=== PATIENT | male | born 1945 | race Caucasian/White ===

== ENCOUNTER 2023-08-02 09:24 | Inpatient (IN) | payer MEDICARE ==
[~2023-08-02] VITALS: Ht 167.6 cm; Wt 73.2 kg
[2023-08-02] MEDS ORDERED: ELIQUIS (09:43)
[2023-08-02] MEDS ORDERED: IV NORMAL SALINE 1000 ML BAG IV ONE (09:45)
[2023-08-02 09:55] LABS: BASOPHILS # (AUTO) 0.2 K/UL (0.0-0.2); BASOPHILS % (AUTO) 0.9 % (0.0-2.0); HEMOGLOBIN 14.3 g/dL (12.5-16.3); LYMPHOCYTES # (AUTO) 0.5 K/uL (0.8-4.8); LYMPHOCYTES % (AUTO) 2.5 % (20.5-51.5); MEAN CORPUSCULAR HEMOGLOBIN 31.3 uug (23.8-33.4); MEAN CORPUSCULAR HGB CONC 33 g/dL (32.5-36.3); NEUTROPHILS # (AUTO) 18.2 K/uL (1.8-8.9); NEUTROPHILS % (AUTO) 91.6 % (38.5-71.5); PLATELET COUNT (AUTO) 230 K/uL (152-348); RED BLOOD CELL COUNT(AUTO) 4.57 MIL/uL (4.06-5.63); RED CELL DISTRIBUTION WIDTH 15.2 % (12.1-16.2); WHITE BLOOD COUNT (AUTO) 19.9 K/uL (3.6-10.2)
[2023-08-02 10:07] LABS: DIFFERENTIAL COMMENT 1
[2023-08-02 10:08] LABS: CALCIUM 9.1 mg/dL (8.5-10.1); CARBON DIOXIDE 24 mmol/L (21-32); CHLORIDE 98 mmol/L (98-107); CREATININE 2.1 mg/dL (0.6-1.3); GLUCOSE 105 mg/dL (74-106); POTASSIUM 3.9 mmol/L (3.5-5.1); SODIUM SERUM 135 mmol/L (136-145); UREA NITROGEN, BLOOD 29 mg/dL (7-18)
[2023-08-02 10:20] LABS: ALANINE AMINOTRANSFERASE 26 U/L (16-63); ALBUMIN 3.1 g/dL (3.4-5.0); ALKALINE PHOSPHATASE 207 U/L (50-136); ASPARTATE AMINOTRANSFERASE 48 U/L (15-37); BILIRUBIN,DIRECT 1.6 mg/dL (0.0-0.2); BILIRUBIN,TOTAL 3.4 mg/dL (0.2-1.0); NT-PRO BNP 10393 pg/mL (0-125); TOTAL PROTEIN, SERUM 7.9 g/dL (6.4-8.2)
[2023-08-02] MEDS ORDERED: ASPIRIN 81 MG TAB.CHEW PO ONE (12:30)
[2023-08-02] MEDS ORDERED: NITROGLYCERIN OINT 1 GM PACKET TP ONE ×2 (12:30→12:32)
[2023-08-02] MEDS ORDERED: ASPIRIN 81 MG TAB.CHEW ONE (12:32)
[2023-08-02] MEDS ORDERED: PIPERACILLIN/TAZOBACTAM/D5W 50 ML IV ONE (12:38)
[2023-08-02] MEDS ORDERED: VANCOMYCIN IV 200 ML ONE (12:38)
[2023-08-02 12:43] LABS: ABG BASE EXCESS -5.1 mmol/L (-2.0-2.0); ABG PH 7.535 (7.340-7.440); ABG PO2 68.5 mmHg (75.0-100.0); ABG SITE RIGHT RADIAL; ABG TOTAL HEMOGLOBIN 16.2 G/dL (14.0-18.0); AaDO2 95.9 mmHg; COHb 1.1 % (0.0-3.9); MetHb 0.3 % (0.0-1.5); O2Hb 93.6 % (94.0-97.0)
[2023-08-02] MEDS ORDERED: PIPERACILLIN SODIUM/TAZOBACTAM 3.375 G in IV DEXTROSE 5% 50 ML IV ONE (12:45)
[2023-08-02] MEDS ORDERED: VANCOMYCIN IV 1,000 MG in IV DEXTROSE 5% 250 ML IV ONE (12:45)
[2023-08-02 14:08] LABS: *BLOOD, URINE 2+ (NEGATIVE); *CLARITY,URINE CLEAR (CLEAR); *COLOR,URINE DARK YELLOW (YELLOW); *KETONES,URINE NEGATIVE (NEGATIVE); *PROTEIN,URINE 2+ (NEGATIVE); *UROBILINOGEN,URINE 0.2 E.U./dl (NORMAL); LEUKOCYTE ESTERASE ,URINE NEGATIVE (NEGATIVE); NITRITE, URINE NEGATIVE (NEGATIVE); PH,URINE 5.5 (5.0-8.0); UGLUCOSE NEGATIVE (NEGATIVE)
[2023-08-02 14:11] LABS: *BILIRUBIN,URIN 1+ (NEGATIVE)
[2023-08-02 14:33] LABS: BACTERIA,URINE RARE /HPF (NONE SEEN); SQUAMOUS EPITHELIAL CELL,UR FEW /HPF (NONE SEEN); WBC,URINE 0-3 /HPF (0-3)
[2023-08-02] MEDS ORDERED: REMEDY ESSENTIAL ZINC PASTE 113 GM TP PRN (16:30)
[2023-08-02] MEDS ORDERED: IV NS 1000 ML 1,000 ML IV ONE (16:30)
[2023-08-02] MEDS ORDERED: ONDANSETRON 4 MG/2 ML VIAL IV PRN (16:30)
[2023-08-02] MEDS ORDERED: MAGNESIUM HYDROXIDE 30 ML LIQUID UDC PO PRN (16:30)
[2023-08-02] MEDS ORDERED: MIRALAX 17 GM POWD.PACK PO ONE (16:30)
[2023-08-02 20:30] VITALS: BP 104/75; TEMP 97.7; O2SAT 95
[2023-08-02] MEDS: SENNOSIDES 1 TABLET PO SCH (21:04)
[2023-08-02] MEDS: APIXABAN 2.5 MG TABLET PO SCH (21:07)
[2023-08-02] MEDS: DOCUSATE SODIUM 100 MG CAPSULE PO SCH (21:10)
[2023-08-02] MEDS ORDERED: PIPERACILLIN/TAZOBACTAM/D5W 50 ML ONE ×2 (21:51)
[2023-08-02] MEDS: PIPERACILLIN/TAZO 2.25 G in IV DEXTROSE 5% 50 ML IV SCH (22:18)
[2023-08-03 00:01] VITALS: BP 100/66; TEMP 98.6; O2SAT 96
[2023-08-03] MEDS: PIPERACILLIN/TAZO 2.25 G in IV DEXTROSE 5% 50 ML IV SCH ×3 (03:32→17:25)
[2023-08-03 04:02] VITALS: BP 101/70; TEMP 98.3; O2SAT 96
[2023-08-03 07:06] LABS: BASOPHILS % (AUTO) 0.1 % (0.0-2.0); EOSINOPHILS % (AUTO) 0.2 % (0.0-7.0); HEMATOCRIT 37.5 % (36.7-47.1); HEMOGLOBIN 12.5 g/dL (12.5-16.3); LYMPHOCYTES # (AUTO) 0.7 K/uL (0.8-4.8); LYMPHOCYTES % (AUTO) 4.9 % (20.5-51.5); MEAN CORPUSCULAR HEMOGLOBIN 31.2 uug (23.8-33.4); MEAN CORPUSCULAR HGB CONC 33 g/dL (32.5-36.3); MEAN CORPUSCULAR VOLUME 93.5 fL (73.0-96.2); MONOCYTES # (AUTO) 0.7 K/uL (0.1-1.30); MONOCYTES % (AUTO) 4.6 % (0.0-11.0); NEUTROPHILS # (AUTO) 13.3 K/uL (1.8-8.9); NEUTROPHILS % (AUTO) 90.2 % (38.5-71.5); PLATELET COUNT (AUTO) 172 K/uL (152-348); RED BLOOD CELL COUNT(AUTO) 4.01 MIL/uL (4.06-5.63); RED CELL DISTRIBUTION WIDTH 15.4 % (12.1-16.2); WHITE BLOOD COUNT (AUTO) 14.8 K/uL (3.6-10.2)
[2023-08-03 07:23] LABS: DIFFERENTIAL COMMENT 1
[2023-08-03 07:33] LABS: CALCIUM 8.1 mg/dL (8.5-10.1); CARBON DIOXIDE 18 mmol/L (21-32); CHLORIDE 101 mmol/L (98-107); CREATININE 2.2 mg/dL (0.6-1.3); GLUCOSE 121 mg/dL (74-106); MAGNESIUM 2.2 mg/dL (1.8-2.4); PHOSPHOROUS 4.3 mg/dL (2.5-4.9); POTASSIUM 4.2 mmol/L (3.5-5.1); SODIUM SERUM 134 mmol/L (136-145); UREA NITROGEN, BLOOD 45 mg/dL (7-18)
[2023-08-03 07:35] LABS: THYROID STIMULATING HORMONE 1.636 mIU/mL (0.358-3.740)
[2023-08-03 07:36] LABS: VANCOMYCIN,RANDOM 7.6 ug/mL (20.0-30.0)
[2023-08-03] MEDS: DOCUSATE SODIUM 100 MG CAPSULE PO SCH ×2 (08:37→17:29)
[2023-08-03] MEDS: METOPROLOL TARTRATE 25 MG TABLET PO SCH ×2 (08:37→17:00)
[2023-08-03] MEDS: ASPIRIN 81 MG TAB.CHEW PO SCH (08:37)
[2023-08-03] MEDS: APIXABAN 2.5 MG TABLET PO SCH (08:38)
[2023-08-03] MEDS ORDERED: PANTOPRAZOLE SODIUM 40 MG VIAL IV SCH (09:00)
[2023-08-03] MEDS ORDERED: VANCOMYCIN IV 1,250 MG in IV DEXTROSE 5% 250 ML IV SCH (11:00)
[2023-08-03 12:00] VITALS: BP 93/66; TEMP 98.5; O2SAT 98
[2023-08-03] MEDS ORDERED: BUME1TAB8 PO (15:33)
[2023-08-03] MEDS ORDERED: PANT40TA49 PO (15:33)
[2023-08-03] MEDS ORDERED: APIX2.5T PO (15:33)
[2023-08-03] MEDS ORDERED: SPIR25TA6 PO (16:54)
[2023-08-03 17:00] VITALS: BP 100/68; TEMP 99; O2SAT 98
[2023-08-03] MEDS: PROTEIN SUPPLEMENT (PROSTAT) 30 ML LIQUID PO SCH (17:36)
[2023-08-03 19:30] VITALS: BP 108/71; TEMP 98.4; O2SAT 94
[2023-08-03 20:18] LABS: *CLARITY,URINE SLIGHTLY CLOUDY (CLEAR); *COLOR,URINE YELLOW (YELLOW); *KETONES,URINE TRACE (NEGATIVE); *PROTEIN,URINE 2+ (NEGATIVE); LEUKOCYTE ESTERASE ,URINE NEGATIVE (NEGATIVE); NITRITE, URINE NEGATIVE (NEGATIVE); UGLUCOSE NEGATIVE (NEGATIVE)
[2023-08-03 20:31] LABS: *BILIRUBIN,URIN 1+ (NEGATIVE); *BLOOD, URINE TRACE (NEGATIVE)
[2023-08-03 20:39] LABS: *CREATININE,URINE 174.9 mg/dL (30-125); *URINE TOTAL PROTEIN RANDOM 151.3 mg/dL (<150/24HR)
[2023-08-03 20:50] LABS: BACTERIA,URINE MODERATE /HPF (NONE SEEN); SQUAMOUS EPITHELIAL CELL,UR FEW /HPF (NONE SEEN); WBC,URINE NONE SEEN /HPF (0-3)
[2023-08-03] MEDS ORDERED: APIXABAN 2.5 MG TABLET PO SCH (21:00)
[2023-08-03] MEDS ORDERED: APIXABAN 5 MG TABLET PO SCH (21:00)
[2023-08-03] MEDS: SENNOSIDES 1 TABLET PO SCH (21:25)
[2023-08-03] MEDS: APIXABAN 5 MG TABLET PO SCH (21:26)
[2023-08-03] MEDS ORDERED: CEFEPIME HCL 1 G in IV DEXTROSE 5% 50 ML IV SCH (22:30)
[2023-08-03] MEDS ORDERED: CEFEPIME HCL 1 G VIAL ONE (23:40)
[2023-08-04 00:05] VITALS: BP 112/69; TEMP 98.7; O2SAT 98
[2023-08-04 05:00] VITALS: BP 104/71; TEMP 98.4; O2SAT 96
[2023-08-04] MEDS: PANTOPRAZOLE SODIUM 40 MG TABLET.DR PO SCH (07:09)
[2023-08-04 07:39] LABS: EOSINOPHILS % (AUTO) 0.3 % (0.0-7.0); HEMATOCRIT 38.4 % (36.7-47.1); HEMOGLOBIN 12.9 g/dL (12.5-16.3); LYMPHOCYTES # (AUTO) 0.6 K/uL (0.8-4.8); LYMPHOCYTES % (AUTO) 4.2 % (20.5-51.5); MEAN CORPUSCULAR HEMOGLOBIN 31.3 uug (23.8-33.4); MEAN CORPUSCULAR HGB CONC 34 g/dL (32.5-36.3); MEAN CORPUSCULAR VOLUME 93.2 fL (73.0-96.2); MONOCYTES # (AUTO) 1.4 K/uL (0.1-1.30); MONOCYTES % (AUTO) 9.5 % (0.0-11.0); PLATELET COUNT (AUTO) 159 K/uL (152-348); RED BLOOD CELL COUNT(AUTO) 4.11 MIL/uL (4.06-5.63); RED CELL DISTRIBUTION WIDTH 15.3 % (12.1-16.2); WHITE BLOOD COUNT (AUTO) 15.1 K/uL (3.6-10.2)
[2023-08-04 07:48] LABS: DIFFERENTIAL COMMENT 1
[2023-08-04 08:06] LABS: ALANINE AMINOTRANSFERASE 122 U/L (16-63); ALBUMIN 2.4 g/dL (3.4-5.0); ALKALINE PHOSPHATASE 187 U/L (50-136); ASPARTATE AMINOTRANSFERASE 279 U/L (15-37); BILIRUBIN,TOTAL 3.7 mg/dL (0.2-1.0); CALCIUM 8.3 mg/dL (8.5-10.1); CARBON DIOXIDE 17 mmol/L (21-32); CHLORIDE 97 mmol/L (98-107); CREATININE 2.5 mg/dL (0.6-1.3); GLUCOSE 97 mg/dL (74-106); MAGNESIUM 2.5 mg/dL (1.8-2.4); PHOSPHOROUS 3.7 mg/dL (2.5-4.9); POTASSIUM 4.4 mmol/L (3.5-5.1); SODIUM SERUM 130 mmol/L (136-145); TOTAL PROTEIN, SERUM 6.7 g/dL (6.4-8.2); UREA NITROGEN, BLOOD 68 mg/dL (7-18)
[2023-08-04] MEDS: METOPROLOL TARTRATE 25 MG TABLET PO SCH ×2 (08:23→17:00)
[2023-08-04] MEDS: DOCUSATE SODIUM 100 MG CAPSULE PO SCH ×2 (08:23→17:21)
[2023-08-04] MEDS: ASPIRIN 81 MG TAB.CHEW PO SCH (08:23)
[2023-08-04] MEDS: APIXABAN 5 MG TABLET PO SCH ×2 (08:24→21:02)
[2023-08-04] MEDS: PROTEIN SUPPLEMENT (PROSTAT) 30 ML LIQUID PO SCH ×2 (08:25→17:21)
[2023-08-04] MEDS: BUMETANIDE 1 MG TABLET PO SCH (08:57)
[2023-08-04 09:36] LABS: CREATINE KINASE, TOTAL 1960 U/L (39-308)
[2023-08-04] MEDS: CEFEPIME HCL 2 G in IV DEXTROSE 5% 100 ML IV SCH (11:48)
[2023-08-04] MEDS ORDERED: CEFEPIME HCL 1 G in IV DEXTROSE 5% 50 ML IV SCH (12:00)
[2023-08-04 12:06] VITALS: BP 99/68; TEMP 97.4; O2SAT 97
[2023-08-04 15:46] VITALS: BP 96/70; TEMP 98.2; O2SAT 98
[2023-08-04 20:00] VITALS: BP 90/67; TEMP 98; O2SAT 98
[2023-08-04] MEDS: SENNOSIDES 1 TABLET PO SCH (20:59)
[2023-08-05] VITALS (7 sets, daily range): BP systolic 90–110; BP diastolic 62–75; TEMP 97.5–99.5; O2SAT 97–100
[2023-08-05 03:06] LABS: PTH, INTACT 40 pg/mL (15-65)
[2023-08-05] MEDS: REMEDY ESSENTIAL ZINC PASTE 113 GM TOP SCH ×3 (06:15→20:30)
[2023-08-05] MEDS: PANTOPRAZOLE SODIUM 40 MG TABLET.DR PO SCH (06:16)
[2023-08-05 07:04] LABS: BASOPHILS % (AUTO) 0.3 % (0.0-2.0); EOSINOPHILS % (AUTO) 0.4 % (0.0-7.0); HEMATOCRIT 37.1 % (36.7-47.1); HEMOGLOBIN 12.7 g/dL (12.5-16.3); LYMPHOCYTES # (AUTO) 0.9 K/uL (0.8-4.8); LYMPHOCYTES % (AUTO) 8.1 % (20.5-51.5); MEAN CORPUSCULAR HEMOGLOBIN 31.5 uug (23.8-33.4); MEAN CORPUSCULAR HGB CONC 34 g/dL (32.5-36.3); MONOCYTES % (AUTO) 9.5 % (0.0-11.0); NEUTROPHILS # (AUTO) 8.6 K/uL (1.8-8.9); NEUTROPHILS % (AUTO) 81.7 % (38.5-71.5); PLATELET COUNT (AUTO) 147 K/uL (152-348); RED BLOOD CELL COUNT(AUTO) 4.03 MIL/uL (4.06-5.63); RED CELL DISTRIBUTION WIDTH 15.3 % (12.1-16.2); WHITE BLOOD COUNT (AUTO) 10.5 K/uL (3.6-10.2)
[2023-08-05 07:19] LABS: DIFFERENTIAL COMMENT 1
[2023-08-05 07:23] LABS: CALCIUM 8.2 mg/dL (8.5-10.1); CARBON DIOXIDE 21 mmol/L (21-32); CHLORIDE 100 mmol/L (98-107); CREATININE 2.1 mg/dL (0.6-1.3); GLUCOSE 104 mg/dL (74-106); MAGNESIUM 2.5 mg/dL (1.8-2.4); PHOSPHOROUS 3.5 mg/dL (2.5-4.9); POTASSIUM 3.7 mmol/L (3.5-5.1); SODIUM SERUM 133 mmol/L (136-145); UREA NITROGEN, BLOOD 74 mg/dL (7-18)
[2023-08-05 08:06] LABS: A/G RATIO 0.7 (0.7-1.7); ALBUMIN 2.4 g/dL (2.9-4.4); ALPHA-1-GLOBULIN 0.3 g/dL (0.0-0.4); ALPHA-2-GLOBULIN 0.8 g/dL (0.4-1.0); BETA GLOBULIN 1.1 g/dL (0.7-1.3); GAMMA GLOBULIN 1.3 g/dL (0.4-1.8); GLOBULIN, TOTAL 3.5 g/dL (2.2-3.9); M-SPIKE Not Observed g/dL (Not Observed)
[2023-08-05] MEDS: METOPROLOL TARTRATE 25 MG TABLET PO SCH ×2 (09:00→17:33)
[2023-08-05] MEDS: BUMETANIDE 1 MG TABLET PO SCH (09:44)
[2023-08-05] MEDS: DOCUSATE SODIUM 100 MG CAPSULE PO SCH ×2 (09:44→17:33)
[2023-08-05] MEDS: ASPIRIN 81 MG TAB.CHEW PO SCH (09:44)
[2023-08-05] MEDS: APIXABAN 5 MG TABLET PO SCH ×2 (09:45→20:29)
[2023-08-05] MEDS: PROTEIN SUPPLEMENT (PROSTAT) 30 ML LIQUID PO SCH ×2 (09:45→17:34)
[2023-08-05] MEDS: CEFEPIME HCL 2 G in IV DEXTROSE 5% 100 ML IV SCH (12:30)
[2023-08-05 14:05] LABS: ALBUMIN 2.3 g/dL (3.4-5.0); BILIRUBIN,DIRECT 2.3 mg/dL (0.0-0.2); BILIRUBIN,TOTAL 3.5 mg/dL (0.2-1.0); TOTAL PROTEIN, SERUM 6.5 g/dL (6.4-8.2)
[2023-08-05] MEDS: SENNOSIDES 1 TABLET PO SCH (20:24)
[2023-08-06 04:00] VITALS: BP 92/63; TEMP 98.4; O2SAT 99
[2023-08-06 05:08] VITALS: O2SAT 97
[2023-08-06] MEDS: PANTOPRAZOLE SODIUM 40 MG TABLET.DR PO SCH (06:01)
[2023-08-06 07:00] LABS: BASOPHILS % (AUTO) 0.2 % (0.0-2.0); EOSINOPHILS # (AUTO) 0.1 K/uL (0.0-0.7); EOSINOPHILS % (AUTO) 0.8 % (0.0-7.0); HEMATOCRIT 37.4 % (36.7-47.1); HEMOGLOBIN 12.6 g/dL (12.5-16.3); LYMPHOCYTES # (AUTO) 1.1 K/uL (0.8-4.8); LYMPHOCYTES % (AUTO) 12.6 % (20.5-51.5); MEAN CORPUSCULAR HEMOGLOBIN 31.3 uug (23.8-33.4); MEAN CORPUSCULAR HGB CONC 34 g/dL (32.5-36.3); MEAN CORPUSCULAR VOLUME 93.2 fL (73.0-96.2); MONOCYTES # (AUTO) 1.2 K/uL (0.1-1.30); MONOCYTES % (AUTO) 13.7 % (0.0-11.0); NEUTROPHILS # (AUTO) 6.5 K/uL (1.8-8.9); NEUTROPHILS % (AUTO) 72.7 % (38.5-71.5); PLATELET COUNT (AUTO) 157 K/uL (152-348); RED BLOOD CELL COUNT(AUTO) 4.01 MIL/uL (4.06-5.63); RED CELL DISTRIBUTION WIDTH 15.1 % (12.1-16.2)
[2023-08-06 07:07] LABS: DIFFERENTIAL COMMENT 1
[2023-08-06 07:13] LABS: ALBUMIN 2.2 g/dL (3.4-5.0); BILIRUBIN,DIRECT 2.8 mg/dL (0.0-0.2); BILIRUBIN,TOTAL 4.1 mg/dL (0.2-1.0); TOTAL PROTEIN, SERUM 6.5 g/dL (6.4-8.2)
[2023-08-06 07:29] LABS: CALCIUM 8.3 mg/dL (8.5-10.1); CARBON DIOXIDE 23 mmol/L (21-32); CHLORIDE 104 mmol/L (98-107); CREATININE 1.8 mg/dL (0.6-1.3); GLUCOSE 105 mg/dL (74-106); MAGNESIUM 2.4 mg/dL (1.8-2.4); PHOSPHOROUS 2.8 mg/dL (2.5-4.9); POTASSIUM 3.4 mmol/L (3.5-5.1); SODIUM SERUM 139 mmol/L (136-145); UREA NITROGEN, BLOOD 62 mg/dL (7-18)
[2023-08-06 08:00] VITALS: BP 102/60; TEMP 98.2; O2SAT 98
[2023-08-06] MEDS ORDERED: POTASSIUM CHLORIDE 20 MEQ POWDER PACKET PO ONE (08:30)
[2023-08-06] MEDS: ASPIRIN 81 MG TAB.CHEW PO SCH (08:57)
[2023-08-06] MEDS: METOPROLOL TARTRATE 25 MG TABLET PO SCH ×2 (08:58→17:31)
[2023-08-06] MEDS: DOCUSATE SODIUM 100 MG CAPSULE PO SCH ×2 (08:58→17:31)
[2023-08-06] MEDS: PROTEIN SUPPLEMENT (PROSTAT) 30 ML LIQUID PO SCH (09:00)
[2023-08-06] MEDS: APIXABAN 5 MG TABLET PO SCH ×2 (09:03→21:00)
[2023-08-06] MEDS: REMEDY ESSENTIAL ZINC PASTE 113 GM TOP SCH ×2 (09:53→21:00)
[2023-08-06] MEDS: BUMETANIDE 1 MG TABLET PO SCH (13:34)
[2023-08-06] MEDS: CEFEPIME HCL 2 G in IV DEXTROSE 5% 100 ML IV SCH (13:34)
[2023-08-06 16:42] VITALS: BP 103/74; TEMP 97.8; O2SAT 100
[2023-08-06 20:00] VITALS: BP 106/71; TEMP 97.9; O2SAT 97
[2023-08-06] MEDS: SENNOSIDES 1 TABLET PO SCH (20:59)
[2023-08-07] MEDS: CEFEPIME HCL 2 G in IV DEXTROSE 5% 100 ML IV SCH ×2 (00:54→11:07)
[2023-08-07 04:00] VITALS: BP 102/69; TEMP 97.9; O2SAT 98
[2023-08-07] MEDS: PANTOPRAZOLE SODIUM 40 MG TABLET.DR PO SCH (06:50)
[2023-08-07 07:48] LABS: ALANINE AMINOTRANSFERASE 104 U/L (16-63); ALBUMIN 2.2 g/dL (3.4-5.0); ALKALINE PHOSPHATASE 209 U/L (50-136); ASPARTATE AMINOTRANSFERASE 133 U/L (15-37); BILIRUBIN,TOTAL 4.6 mg/dL (0.2-1.0); CALCIUM 8.1 mg/dL (8.5-10.1); CARBON DIOXIDE 27 mmol/L (21-32); CHLORIDE 102 mmol/L (98-107); CREATININE 1.7 mg/dL (0.6-1.3); GLUCOSE 94 mg/dL (74-106); MAGNESIUM 2.4 mg/dL (1.8-2.4); PHOSPHOROUS 2.8 mg/dL (2.5-4.9); POTASSIUM 3.7 mmol/L (3.5-5.1); SODIUM SERUM 137 mmol/L (136-145); TOTAL PROTEIN, SERUM 6.7 g/dL (6.4-8.2); UREA NITROGEN, BLOOD 56 mg/dL (7-18)
[2023-08-07 08:00] VITALS: BP 100/67; TEMP 98.2; O2SAT 100
[2023-08-07 08:02] LABS: BASOPHILS % (AUTO) 0.2 % (0.0-2.0); EOSINOPHILS # (AUTO) 0.1 K/uL (0.0-0.7); EOSINOPHILS % (AUTO) 1.2 % (0.0-7.0); HEMATOCRIT 38.4 % (36.7-47.1); HEMOGLOBIN 12.9 g/dL (12.5-16.3); LYMPHOCYTES # (AUTO) 1.1 K/uL (0.8-4.8); LYMPHOCYTES % (AUTO) 10.4 % (20.5-51.5); MEAN CORPUSCULAR HEMOGLOBIN 31.1 uug (23.8-33.4); MEAN CORPUSCULAR HGB CONC 34 g/dL (32.5-36.3); MEAN CORPUSCULAR VOLUME 92.8 fL (73.0-96.2); MONOCYTES % (AUTO) 9.3 % (0.0-11.0); NEUTROPHILS # (AUTO) 8.3 K/uL (1.8-8.9); NEUTROPHILS % (AUTO) 78.9 % (38.5-71.5); PLATELET COUNT (AUTO) 185 K/uL (152-348); RED BLOOD CELL COUNT(AUTO) 4.14 MIL/uL (4.06-5.63); RED CELL DISTRIBUTION WIDTH 15.4 % (12.1-16.2); WHITE BLOOD COUNT (AUTO) 10.5 K/uL (3.6-10.2)
[2023-08-07 08:07] LABS: DIFFERENTIAL COMMENT 1
[2023-08-07] MEDS: METOPROLOL TARTRATE 25 MG TABLET PO SCH ×3 (09:00→16:17)
[2023-08-07] MEDS: ASPIRIN 81 MG TAB.CHEW PO SCH (09:18)
[2023-08-07] MEDS: APIXABAN 5 MG TABLET PO SCH ×2 (09:19→20:37)
[2023-08-07] MEDS: BUMETANIDE 1 MG TABLET PO SCH (09:20)
[2023-08-07] MEDS: REMEDY ESSENTIAL ZINC PASTE 113 GM TOP SCH ×2 (09:21→20:35)
[2023-08-07] MEDS: DOCUSATE SODIUM 100 MG CAPSULE PO SCH ×2 (09:21→16:17)
[2023-08-07] MEDS ORDERED: APIX5TAB PO (11:51)
[2023-08-07] MEDS ORDERED: METO25TA6 PO (11:51)
[2023-08-07] MEDS ORDERED: APIX5TAB4 PO (11:51)
[2023-08-07] MEDS ORDERED: BUME1TAB8 PO (11:51)
[2023-08-07] MEDS ORDERED: LEVO500T90 PO (11:54)
[2023-08-07 15:08] VITALS: BP 101/73; TEMP 98.1; O2SAT 98
[2023-08-07 19:45] VITALS: BP 98/67; TEMP 98; O2SAT 97
[2023-08-07] MEDS: SENNOSIDES 1 TABLET PO SCH (20:35)
[2023-08-08 04:00] VITALS: BP 99/64; TEMP 98.2; O2SAT 97
[2023-08-08] MEDS: PANTOPRAZOLE SODIUM 40 MG TABLET.DR PO SCH (06:02)
[2023-08-08 08:06] VITALS: BP 110/70; TEMP 98.2; O2SAT 98
[2023-08-08] MEDS: METOPROLOL TARTRATE 25 MG TABLET PO SCH ×3 (08:38→17:00)
[2023-08-08] MEDS: DOCUSATE SODIUM 100 MG CAPSULE PO SCH ×2 (08:38→17:18)
[2023-08-08] MEDS: BUMETANIDE 1 MG TABLET PO SCH (08:38)
[2023-08-08] MEDS: ASPIRIN 81 MG TAB.CHEW PO SCH (08:38)
[2023-08-08] MEDS: APIXABAN 5 MG TABLET PO SCH ×2 (08:44→20:47)
[2023-08-08] MEDS: REMEDY ESSENTIAL ZINC PASTE 113 GM TOP SCH ×2 (08:47→20:50)
[2023-08-08] MEDS: CEFEPIME HCL 2 G in IV DEXTROSE 5% 100 ML IV SCH (12:18)
[2023-08-08 12:31] LABS: ALANINE AMINOTRANSFERASE 103 U/L (16-63); ALBUMIN 2.2 g/dL (3.4-5.0); ALKALINE PHOSPHATASE 227 U/L (50-136); ASPARTATE AMINOTRANSFERASE 110 U/L (15-37); BILIRUBIN,DIRECT 2.4 mg/dL (0.0-0.2); BILIRUBIN,TOTAL 4.1 mg/dL (0.2-1.0); CALCIUM 7.7 mg/dL (8.5-10.1); CARBON DIOXIDE 25 mmol/L (21-32); CHLORIDE 100 mmol/L (98-107); CREATININE 1.4 mg/dL (0.6-1.3); GLUCOSE 101 mg/dL (74-106); POTASSIUM 3.1 mmol/L (3.5-5.1); SODIUM SERUM 136 mmol/L (136-145); TOTAL PROTEIN, SERUM 7.1 g/dL (6.4-8.2); UREA NITROGEN, BLOOD 38 mg/dL (7-18)
[2023-08-08 12:48] LABS: BASOPHILS # (AUTO) 0.1 K/UL (0.0-0.2); BASOPHILS % (AUTO) 0.5 % (0.0-2.0); DIFFERENTIAL COMMENT 0; EOSINOPHILS # (AUTO) 0.2 K/uL (0.0-0.7); EOSINOPHILS % (AUTO) 1.3 % (0.0-7.0); HEMATOCRIT 38.6 % (36.7-47.1); HEMOGLOBIN 12.9 g/dL (12.5-16.3); LYMPHOCYTES % (AUTO) 8.4 % (20.5-51.5); MEAN CORPUSCULAR HEMOGLOBIN 31.1 uug (23.8-33.4); MEAN CORPUSCULAR HGB CONC 34 g/dL (32.5-36.3); MEAN CORPUSCULAR VOLUME 92.8 fL (73.0-96.2); MONOCYTES # (AUTO) 1.2 K/uL (0.1-1.30); MONOCYTES % (AUTO) 9.6 % (0.0-11.0); NEUTROPHILS # (AUTO) 9.9 K/uL (1.8-8.9); NEUTROPHILS % (AUTO) 80.2 % (38.5-71.5); PLATELET COUNT (AUTO) 242 K/uL (152-348); RED BLOOD CELL COUNT(AUTO) 4.16 MIL/uL (4.06-5.63); RED CELL DISTRIBUTION WIDTH 15.3 % (12.1-16.2); WHITE BLOOD COUNT (AUTO) 12.3 K/uL (3.6-10.2)
[2023-08-08 16:12] VITALS: BP 104/71; TEMP 98.4; O2SAT 97
[2023-08-08 19:30] VITALS: BP 90/63; TEMP 98.3; O2SAT 96
[2023-08-08] MEDS: SENNOSIDES 1 TABLET PO SCH (20:48)
[2023-08-09 05:25] VITALS: BP 102/65; TEMP 98; O2SAT 97
[2023-08-09] MEDS: PANTOPRAZOLE SODIUM 40 MG TABLET.DR PO SCH (06:05)
[2023-08-09 07:58] LABS: BASOPHILS % (AUTO) 0.3 % (0.0-2.0); EOSINOPHILS # (AUTO) 0.2 K/uL (0.0-0.7); EOSINOPHILS % (AUTO) 1.8 % (0.0-7.0); HEMATOCRIT 36.7 % (36.7-47.1); HEMOGLOBIN 12.2 g/dL (12.5-16.3); LYMPHOCYTES # (AUTO) 1.2 K/uL (0.8-4.8); LYMPHOCYTES % (AUTO) 11.6 % (20.5-51.5); MEAN CORPUSCULAR HEMOGLOBIN 31.1 uug (23.8-33.4); MEAN CORPUSCULAR HGB CONC 33 g/dL (32.5-36.3); MEAN CORPUSCULAR VOLUME 93.2 fL (73.0-96.2); MONOCYTES # (AUTO) 1.1 K/uL (0.1-1.30); NEUTROPHILS % (AUTO) 76.3 % (38.5-71.5); PLATELET COUNT (AUTO) 258 K/uL (152-348); RED BLOOD CELL COUNT(AUTO) 3.93 MIL/uL (4.06-5.63); RED CELL DISTRIBUTION WIDTH 15.3 % (12.1-16.2); WHITE BLOOD COUNT (AUTO) 10.5 K/uL (3.6-10.2)
[2023-08-09 08:01] LABS: DIFFERENTIAL COMMENT 1
[2023-08-09] MEDS: ASPIRIN 81 MG TAB.CHEW PO SCH (08:16)
[2023-08-09] MEDS: DOCUSATE SODIUM 100 MG CAPSULE PO SCH ×2 (08:16→16:08)
[2023-08-09] MEDS: BUMETANIDE 1 MG TABLET PO SCH (08:16)
[2023-08-09] MEDS: METOPROLOL TARTRATE 25 MG TABLET PO SCH ×2 (08:17→16:13)
[2023-08-09] MEDS: APIXABAN 5 MG TABLET PO SCH ×2 (08:18→20:10)
[2023-08-09] MEDS: REMEDY ESSENTIAL ZINC PASTE 113 GM TOP SCH ×2 (08:36→20:11)
[2023-08-09 08:49] VITALS: BP 96/66; TEMP 98.6; O2SAT 98
[2023-08-09 08:50] LABS: ALANINE AMINOTRANSFERASE 74 U/L (16-63); ALKALINE PHOSPHATASE 215 U/L (50-136); ASPARTATE AMINOTRANSFERASE 77 U/L (15-37); BILIRUBIN,TOTAL 3.2 mg/dL (0.2-1.0); CALCIUM 7.7 mg/dL (8.5-10.1); CARBON DIOXIDE 29 mmol/L (21-32); CHLORIDE 100 mmol/L (98-107); CREATININE 1.4 mg/dL (0.6-1.3); GLUCOSE 83 mg/dL (74-106); MAGNESIUM 2.1 mg/dL (1.8-2.4); PHOSPHOROUS 2.3 mg/dL (2.5-4.9); POTASSIUM 3.4 mmol/L (3.5-5.1); SODIUM SERUM 137 mmol/L (136-145); TOTAL PROTEIN, SERUM 6.3 g/dL (6.4-8.2); UREA NITROGEN, BLOOD 36 mg/dL (7-18)
[2023-08-09] MEDS: CEFEPIME HCL 2 G in IV DEXTROSE 5% 100 ML IV SCH (11:06)
[2023-08-09] MEDS: HYDROCODONE/APAP 5-325MG TABLET PO PRN ×2 (13:10→22:57)
[2023-08-09 14:39] LABS: BAND % (MANUAL) 11 % (0-10); LYMPHOCYTES % (MANUAL) 9 % (20-40); METAMYELOCYTES % 1 % (0-1); MONOCYTES % (MANUAL) 13 % (2-10); NEUTROPHILS % (MANUAL) 62 % (42-75); PLATELET ESTIMATE ADEQUATE; REACTIVE LYMPHOCYTES 4 % (0-0)
[2023-08-09 14:40] LABS: ANISOCYTOSIS 1+
[2023-08-09] MEDS ORDERED: NEUTRA PHOS PACKET PO ONE (16:15)
[2023-08-09 16:47] VITALS: BP 107/75; TEMP 98.3; O2SAT 95
[2023-08-09] MEDS: SENNOSIDES 1 TABLET PO SCH (20:10)
[2023-08-09 20:30] VITALS: BP 93/64; TEMP 98.3; O2SAT 98
[2023-08-10 05:35] VITALS: BP 103/71; TEMP 98; O2SAT 95
[2023-08-10] MEDS: PANTOPRAZOLE SODIUM 40 MG TABLET.DR PO SCH (06:18)
[2023-08-10 06:46] LABS: BASOPHILS % (AUTO) 0.3 % (0.0-2.0); EOSINOPHILS # (AUTO) 0.2 K/uL (0.0-0.7); EOSINOPHILS % (AUTO) 1.8 % (0.0-7.0); HEMATOCRIT 35.7 % (36.7-47.1); LYMPHOCYTES # (AUTO) 1.3 K/uL (0.8-4.8); LYMPHOCYTES % (AUTO) 13.7 % (20.5-51.5); MEAN CORPUSCULAR HEMOGLOBIN 31.1 uug (23.8-33.4); MEAN CORPUSCULAR HGB CONC 34 g/dL (32.5-36.3); MEAN CORPUSCULAR VOLUME 92.5 fL (73.0-96.2); MONOCYTES % (AUTO) 9.9 % (0.0-11.0); NEUTROPHILS # (AUTO) 7.2 K/uL (1.8-8.9); NEUTROPHILS % (AUTO) 74.3 % (38.5-71.5); PLATELET COUNT (AUTO) 266 K/uL (152-348); RED BLOOD CELL COUNT(AUTO) 3.86 MIL/uL (4.06-5.63); RED CELL DISTRIBUTION WIDTH 15.6 % (12.1-16.2); WHITE BLOOD COUNT (AUTO) 9.8 K/uL (3.6-10.2)
[2023-08-10 06:54] LABS: DIFFERENTIAL COMMENT 1
[2023-08-10 07:03] LABS: ALANINE AMINOTRANSFERASE 63 U/L (16-63); ALKALINE PHOSPHATASE 234 U/L (50-136); ASPARTATE AMINOTRANSFERASE 50 U/L (15-37); BILIRUBIN,TOTAL 3.4 mg/dL (0.2-1.0); CALCIUM 7.9 mg/dL (8.5-10.1); CARBON DIOXIDE 30 mmol/L (21-32); CHLORIDE 102 mmol/L (98-107); CREATININE 1.4 mg/dL (0.6-1.3); GLUCOSE 91 mg/dL (74-106); MAGNESIUM 2.1 mg/dL (1.8-2.4); PHOSPHOROUS 3.1 mg/dL (2.5-4.9); POTASSIUM 3.6 mmol/L (3.5-5.1); SODIUM SERUM 138 mmol/L (136-145); TOTAL PROTEIN, SERUM 6.6 g/dL (6.4-8.2); UREA NITROGEN, BLOOD 35 mg/dL (7-18)
[2023-08-10] MEDS: METOPROLOL TARTRATE 25 MG TABLET PO SCH ×2 (08:04→16:01)
[2023-08-10] MEDS: ASPIRIN 81 MG TAB.CHEW PO SCH (08:05)
[2023-08-10] MEDS: BUMETANIDE 1 MG TABLET PO SCH (08:05)
[2023-08-10] MEDS: APIXABAN 5 MG TABLET PO SCH ×2 (08:06→20:07)
[2023-08-10] MEDS: DOCUSATE SODIUM 100 MG CAPSULE PO SCH ×2 (08:07→16:14)
[2023-08-10] MEDS: REMEDY ESSENTIAL ZINC PASTE 113 GM TOP SCH ×2 (09:00→20:23)
[2023-08-10] MEDS: CEFEPIME HCL 2 G in IV DEXTROSE 5% 100 ML IV SCH (11:17)
[2023-08-10 12:16] VITALS: BP 105/64; TEMP 97.8; O2SAT 98
[2023-08-10 15:34] VITALS: BP 102/70; TEMP 99.4; O2SAT 97
[2023-08-10] MEDS: HYDROCODONE/APAP 5-325MG TABLET PO PRN (18:02)
[2023-08-10 20:00] VITALS: BP 110/72; TEMP 97.9; O2SAT 96
[2023-08-10] MEDS: SENNOSIDES 1 TABLET PO SCH (20:06)
[2023-08-11] MEDS: ACETAMINOPHEN 325 MG TABLET PO PRN ×2 (03:16→14:29)
[2023-08-11 04:00] VITALS: BP 109/68; TEMP 98.4; O2SAT 94
[2023-08-11] MEDS: PANTOPRAZOLE SODIUM 40 MG TABLET.DR PO SCH (06:10)
[2023-08-11 07:27] LABS: BASOPHILS % (AUTO) 0.2 % (0.0-2.0); EOSINOPHILS # (AUTO) 0.2 K/uL (0.0-0.7); EOSINOPHILS % (AUTO) 1.8 % (0.0-7.0); HEMATOCRIT 34.1 % (36.7-47.1); HEMOGLOBIN 11.4 g/dL (12.5-16.3); LYMPHOCYTES # (AUTO) 1.5 K/uL (0.8-4.8); LYMPHOCYTES % (AUTO) 14.7 % (20.5-51.5); MEAN CORPUSCULAR HEMOGLOBIN 31.2 uug (23.8-33.4); MEAN CORPUSCULAR HGB CONC 34 g/dL (32.5-36.3); MONOCYTES # (AUTO) 0.9 K/uL (0.1-1.30); MONOCYTES % (AUTO) 9.4 % (0.0-11.0); NEUTROPHILS # (AUTO) 7.3 K/uL (1.8-8.9); NEUTROPHILS % (AUTO) 73.9 % (38.5-71.5); PLATELET COUNT (AUTO) 265 K/uL (152-348); RED BLOOD CELL COUNT(AUTO) 3.67 MIL/uL (4.06-5.63); RED CELL DISTRIBUTION WIDTH 15.8 % (12.1-16.2); WHITE BLOOD COUNT (AUTO) 9.9 K/uL (3.6-10.2)
[2023-08-11 07:52] LABS: ALANINE AMINOTRANSFERASE 49 U/L (16-63); ALBUMIN 1.9 g/dL (3.4-5.0); ALKALINE PHOSPHATASE 206 U/L (50-136); ASPARTATE AMINOTRANSFERASE 38 U/L (15-37); BILIRUBIN,DIRECT 1.7 mg/dL (0.0-0.2); BILIRUBIN,TOTAL 2.8 mg/dL (0.2-1.0); CALCIUM 8.1 mg/dL (8.5-10.1); CARBON DIOXIDE 29 mmol/L (21-32); CHLORIDE 102 mmol/L (98-107); CREATININE 1.4 mg/dL (0.6-1.3); GLUCOSE 87 mg/dL (74-106); MAGNESIUM 2.2 mg/dL (1.8-2.4); POTASSIUM 3.7 mmol/L (3.5-5.1); SODIUM SERUM 138 mmol/L (136-145); TOTAL PROTEIN, SERUM 6.2 g/dL (6.4-8.2); UREA NITROGEN, BLOOD 37 mg/dL (7-18)
[2023-08-11 07:54] LABS: DIFFERENTIAL COMMENT 1
[2023-08-11] MEDS: METOPROLOL TARTRATE 25 MG TABLET PO SCH ×2 (09:00→16:01)
[2023-08-11] MEDS: DOCUSATE SODIUM 100 MG CAPSULE PO SCH ×2 (09:13→16:01)
[2023-08-11] MEDS: ASPIRIN 81 MG TAB.CHEW PO SCH (09:13)
[2023-08-11] MEDS: APIXABAN 5 MG TABLET PO SCH ×2 (09:14→20:48)
[2023-08-11] MEDS: REMEDY ESSENTIAL ZINC PASTE 113 GM TOP SCH ×2 (09:15→20:49)
[2023-08-11] MEDS: BUMETANIDE 1 MG TABLET PO SCH (09:15)
[2023-08-11 11:09] LABS: HEPATITIS A AB, TOTAL Negative (Negative); HEPATITIS B CORE AB, TOTAL Negative (Negative); HEPATITIS C VIRUS ANTIBODY Non Reactive (Non Reactive)
[2023-08-11 11:52] VITALS: BP 113/71; TEMP 97.9; O2SAT 97
[2023-08-11] MEDS: CEFEPIME HCL 2 G in IV DEXTROSE 5% 100 ML IV SCH (12:27)
[2023-08-11 15:25] VITALS: TEMP 97.4; O2SAT 95
[2023-08-11 15:31] VITALS: BP 134/95; TEMP 97.4; O2SAT 95
[2023-08-11] MEDS: HYDROCODONE/APAP 5-325MG TABLET PO PRN (16:02)
[2023-08-11 20:00] VITALS: BP 99/57; TEMP 98.8; O2SAT 96
[2023-08-11] MEDS: SENNOSIDES 1 TABLET PO SCH (20:47)
[2023-08-12] MEDS: HYDROCODONE/APAP 5-325MG TABLET PO PRN (00:43)
[2023-08-12] MEDS: ZOLPIDEM 5 MG TABLET PO PRN ×2 (01:15→21:19)
[2023-08-12 04:00] VITALS: BP 101/63; TEMP 98.1; O2SAT 95
[2023-08-12] MEDS: PANTOPRAZOLE SODIUM 40 MG TABLET.DR PO SCH (06:23)
[2023-08-12] MEDS: BUMETANIDE 1 MG TABLET PO SCH (09:31)
[2023-08-12] MEDS: ASPIRIN 81 MG TAB.CHEW PO SCH (09:31)
[2023-08-12] MEDS: DOCUSATE SODIUM 100 MG CAPSULE PO SCH ×2 (09:31→18:03)
[2023-08-12] MEDS: METOPROLOL TARTRATE 25 MG TABLET PO SCH ×2 (09:32→18:04)
[2023-08-12] MEDS: APIXABAN 5 MG TABLET PO SCH ×2 (09:33→21:20)
[2023-08-12] MEDS: REMEDY ESSENTIAL ZINC PASTE 113 GM TOP SCH ×2 (09:33→21:27)
[2023-08-12 11:54] VITALS: BP 116/69; TEMP 97.8; O2SAT 98
[2023-08-12] MEDS: CEFEPIME HCL 2 G in IV DEXTROSE 5% 100 ML IV SCH (11:57)
[2023-08-12 16:10] VITALS: BP 113/76; TEMP 97.9; O2SAT 98
[2023-08-12 20:46] VITALS: BP 103/69; TEMP 98.1; O2SAT 95
[2023-08-12] MEDS: SENNOSIDES 1 TABLET PO SCH (21:21)
[2023-08-12] MEDS: ACETAMINOPHEN 325 MG TABLET PO PRN (21:59)
[2023-08-13 04:00] VITALS: BP 95/62; TEMP 97.7; O2SAT 97
[2023-08-13] MEDS: ASPIRIN 81 MG TAB.CHEW PO SCH (09:42)
[2023-08-13] MEDS: BUMETANIDE 1 MG TABLET PO SCH (09:42)
[2023-08-13] MEDS: DOCUSATE SODIUM 100 MG CAPSULE PO SCH ×2 (09:42→17:15)
[2023-08-13] MEDS: REMEDY ESSENTIAL ZINC PASTE 113 GM TOP SCH ×2 (09:46→21:12)
[2023-08-13] MEDS: APIXABAN 5 MG TABLET PO SCH ×2 (09:47→21:11)
[2023-08-13] MEDS: CEFEPIME HCL 2 G in IV DEXTROSE 5% 100 ML IV SCH (13:08)
[2023-08-13 17:00] VITALS: BP 94/62; TEMP 98.6; O2SAT 98
[2023-08-13] MEDS: METOPROLOL TARTRATE 25 MG TABLET PO SCH (17:15)
[2023-08-13 20:00] VITALS: BP 102/64; TEMP 98.1; O2SAT 98
[2023-08-13] MEDS: SENNOSIDES 1 TABLET PO SCH (21:11)
[2023-08-13] MEDS: HYDROCODONE/APAP 5-325MG TABLET PO PRN (22:57)
[2023-08-14] MEDS: ZOLPIDEM 5 MG TABLET PO PRN (00:13)
[2023-08-14] MEDS: PANTOPRAZOLE SODIUM 40 MG TABLET.DR PO SCH (06:16)
[2023-08-14 08:22] LABS: CALCIUM 8.3 mg/dL (8.5-10.1); CARBON DIOXIDE 30 mmol/L (21-32); CHLORIDE 101 mmol/L (98-107); CREATININE 1.4 mg/dL (0.6-1.3); GLUCOSE 87 mg/dL (74-106); POTASSIUM 3.9 mmol/L (3.5-5.1); SODIUM SERUM 138 mmol/L (136-145); UREA NITROGEN, BLOOD 40 mg/dL (7-18)
[2023-08-14] MEDS: DOCUSATE SODIUM 100 MG CAPSULE PO SCH ×2 (09:50→18:09)
[2023-08-14] MEDS: ASPIRIN 81 MG TAB.CHEW PO SCH (09:50)
[2023-08-14] MEDS: BUMETANIDE 1 MG TABLET PO SCH (09:50)
[2023-08-14] MEDS: REMEDY ESSENTIAL ZINC PASTE 113 GM TOP SCH ×2 (09:51→20:59)
[2023-08-14] MEDS: APIXABAN 5 MG TABLET PO SCH ×2 (09:52→20:59)
[2023-08-14] MEDS: METOPROLOL TARTRATE 25 MG TABLET PO SCH ×2 (09:52→18:09)
[2023-08-14] MEDS ORDERED: CEFEPIME HCL 2 G in IV DEXTROSE 5% 100 ML IV SCH (12:00)
[2023-08-14 20:14] VITALS: BP 91/56; TEMP 98.5; O2SAT 99
[2023-08-14] MEDS: HYDROCODONE/APAP 5-325MG TABLET PO PRN (20:49)
[2023-08-14] MEDS: SENNOSIDES 1 TABLET PO SCH (20:49)
[2023-08-15] MEDS: ZOLPIDEM 5 MG TABLET PO PRN ×2 (00:02→22:42)
[2023-08-15 04:36] VITALS: BP 108/65; TEMP 98.4; O2SAT 98
[2023-08-15] MEDS ORDERED: levoFLOXacin 750 MG TABLET PO SCH (06:00)
[2023-08-15] MEDS: PANTOPRAZOLE SODIUM 40 MG TABLET.DR PO SCH (06:17)
[2023-08-15] MEDS: ASPIRIN 81 MG TAB.CHEW PO SCH (09:22)
[2023-08-15] MEDS: DOCUSATE SODIUM 100 MG CAPSULE PO SCH ×2 (09:22→16:19)
[2023-08-15] MEDS: BUMETANIDE 1 MG TABLET PO SCH (09:22)
[2023-08-15] MEDS: METOPROLOL TARTRATE 25 MG TABLET PO SCH ×2 (09:23→16:32)
[2023-08-15] MEDS: APIXABAN 5 MG TABLET PO SCH ×2 (09:23→20:29)
[2023-08-15] MEDS: REMEDY ESSENTIAL ZINC PASTE 113 GM TOP SCH ×2 (09:24→20:30)
[2023-08-15 12:00] VITALS: BP 99/88; TEMP 97.6; O2SAT 97
[2023-08-15 16:05] VITALS: BP 94/62; TEMP 97; O2SAT 98
[2023-08-15 20:00] VITALS: BP 105/63; TEMP 97.8; O2SAT 100
[2023-08-15] MEDS: SENNOSIDES 1 TABLET PO SCH (20:29)
[2023-08-16] MEDS: ACETAMINOPHEN 325 MG TABLET PO PRN ×2 (04:00→21:44)
[2023-08-16 05:42] VITALS: BP 99/64; TEMP 97.5; O2SAT 97
[2023-08-16] MEDS: PANTOPRAZOLE SODIUM 40 MG TABLET.DR PO SCH (06:27)
[2023-08-16] MEDS: METOPROLOL TARTRATE 25 MG TABLET PO SCH ×2 (09:00→16:20)
[2023-08-16] MEDS: ASPIRIN 81 MG TAB.CHEW PO SCH (09:19)
[2023-08-16] MEDS: BUMETANIDE 1 MG TABLET PO SCH (09:20)
[2023-08-16] MEDS: APIXABAN 5 MG TABLET PO SCH ×2 (09:20→21:03)
[2023-08-16] MEDS: DOCUSATE SODIUM 100 MG CAPSULE PO SCH ×2 (09:21→16:20)
[2023-08-16] MEDS: REMEDY ESSENTIAL ZINC PASTE 113 GM TOP SCH ×2 (09:26→21:06)
[2023-08-16 09:28] VITALS: BP 102/64; TEMP 97.2; O2SAT 97
[2023-08-16 12:00] VITALS: BP 108/67; TEMP 97.8; O2SAT 97
[2023-08-16 16:00] VITALS: BP 100/61; TEMP 97.2; O2SAT 97
[2023-08-16 20:00] VITALS: BP 98/54; TEMP 98.4; O2SAT 98
[2023-08-16] MEDS: SENNOSIDES 1 TABLET PO SCH (21:00)
[2023-08-16] MEDS: ZOLPIDEM 5 MG TABLET PO PRN (21:44)
[2023-08-17 04:00] VITALS: BP 94/62; TEMP 98.1; O2SAT 99
[2023-08-17] MEDS: PANTOPRAZOLE SODIUM 40 MG TABLET.DR PO SCH (06:34)
[2023-08-17] MEDS: ASPIRIN 81 MG TAB.CHEW PO SCH (08:40)
[2023-08-17] MEDS: DOCUSATE SODIUM 100 MG CAPSULE PO SCH ×2 (08:40→16:38)
[2023-08-17] MEDS: BUMETANIDE 1 MG TABLET PO SCH (08:40)
[2023-08-17] MEDS: APIXABAN 5 MG TABLET PO SCH ×2 (08:42→21:18)
[2023-08-17] MEDS: METOPROLOL TARTRATE 25 MG TABLET PO SCH ×2 (08:44→16:42)
[2023-08-17] MEDS: REMEDY ESSENTIAL ZINC PASTE 113 GM TOP SCH ×2 (08:46→21:19)
[2023-08-17 11:30] VITALS: BP 107/71; TEMP 98; O2SAT 98
[2023-08-17 16:18] VITALS: BP 93/55; TEMP 97.5; O2SAT 97
[2023-08-17 20:00] VITALS: BP 108/67; TEMP 97.7; O2SAT 98
[2023-08-17] MEDS: SENNOSIDES 1 TABLET PO SCH (21:18)
[2023-08-17] MEDS: ZOLPIDEM 5 MG TABLET PO PRN (23:15)
[2023-08-18] MEDS: ACETAMINOPHEN 325 MG TABLET PO PRN (03:59)
[2023-08-18 04:00] VITALS: BP 96/58; TEMP 97.8; O2SAT 96
[2023-08-18] MEDS: PANTOPRAZOLE SODIUM 40 MG TABLET.DR PO SCH (06:17)
[2023-08-18] MEDS: METOPROLOL TARTRATE 25 MG TABLET PO SCH ×2 (09:00→18:02)
[2023-08-18] MEDS: BUMETANIDE 1 MG TABLET PO SCH (09:02)
[2023-08-18] MEDS: ASPIRIN 81 MG TAB.CHEW PO SCH (09:02)
[2023-08-18] MEDS: DOCUSATE SODIUM 100 MG CAPSULE PO SCH ×2 (09:02→18:03)
[2023-08-18] MEDS: REMEDY ESSENTIAL ZINC PASTE 113 GM TOP SCH ×2 (09:05→21:34)
[2023-08-18] MEDS: APIXABAN 5 MG TABLET PO SCH ×2 (09:05→20:29)
[2023-08-18 11:24] VITALS: BP 101/68; TEMP 97.6; O2SAT 98
[2023-08-18 15:57] VITALS: BP 110/77; TEMP 97.8; O2SAT 98
[2023-08-18 20:00] VITALS: BP 101/62; TEMP 98.9; O2SAT 96
[2023-08-18] MEDS: SENNOSIDES 1 TABLET PO SCH (20:29)
[2023-08-18] MEDS: ZOLPIDEM 5 MG TABLET PO PRN (23:03)
[2023-08-18 23:18] VITALS: BP 101/62; TEMP 98.9; O2SAT 96
[2023-08-19 04:00] VITALS: BP 98/64; TEMP 98.5; O2SAT 96
[2023-08-19] MEDS: PANTOPRAZOLE SODIUM 40 MG TABLET.DR PO SCH (06:16)
[2023-08-19 08:36] LABS: BASOPHILS # (AUTO) 0.1 K/UL (0.0-0.2); BASOPHILS % (AUTO) 0.9 % (0.0-2.0); EOSINOPHILS # (AUTO) 0.2 K/uL (0.0-0.7); EOSINOPHILS % (AUTO) 2.1 % (0.0-7.0); HEMATOCRIT 31.6 % (36.7-47.1); HEMOGLOBIN 10.6 g/dL (12.5-16.3); LYMPHOCYTES # (AUTO) 1.3 K/uL (0.8-4.8); LYMPHOCYTES % (AUTO) 16.6 % (20.5-51.5); MEAN CORPUSCULAR HEMOGLOBIN 31.7 uug (23.8-33.4); MEAN CORPUSCULAR HGB CONC 34 g/dL (32.5-36.3); MEAN CORPUSCULAR VOLUME 94.1 fL (73.0-96.2); MONOCYTES % (AUTO) 12.3 % (0.0-11.0); NEUTROPHILS # (AUTO) 5.4 K/uL (1.8-8.9); NEUTROPHILS % (AUTO) 68.1 % (38.5-71.5); PLATELET COUNT (AUTO) 369 K/uL (152-348); RED BLOOD CELL COUNT(AUTO) 3.36 MIL/uL (4.06-5.63); RED CELL DISTRIBUTION WIDTH 18.4 % (12.1-16.2); WHITE BLOOD COUNT (AUTO) 7.9 K/uL (3.6-10.2)
[2023-08-19 08:49] LABS: ALANINE AMINOTRANSFERASE 19 U/L (16-63); ALBUMIN 2.3 g/dL (3.4-5.0); ALKALINE PHOSPHATASE 256 U/L (50-136); ASPARTATE AMINOTRANSFERASE 18 U/L (15-37); BILIRUBIN,DIRECT 1.1 mg/dL (0.0-0.2); BILIRUBIN,TOTAL 1.9 mg/dL (0.2-1.0); CALCIUM 8.6 mg/dL (8.5-10.1); CARBON DIOXIDE 28 mmol/L (21-32); CHLORIDE 103 mmol/L (98-107); CREATININE 1.6 mg/dL (0.6-1.3); GLUCOSE 88 mg/dL (74-106); POTASSIUM 4.4 mmol/L (3.5-5.1); SODIUM SERUM 137 mmol/L (136-145); TOTAL PROTEIN, SERUM 7.1 g/dL (6.4-8.2); UREA NITROGEN, BLOOD 32 mg/dL (7-18)
[2023-08-19 08:58] LABS: DIFFERENTIAL COMMENT 1
[2023-08-19] MEDS: METOPROLOL TARTRATE 25 MG TABLET PO SCH ×2 (09:00→17:42)
[2023-08-19] MEDS: ASPIRIN 81 MG TAB.CHEW PO SCH (09:29)
[2023-08-19] MEDS: APIXABAN 5 MG TABLET PO SCH ×2 (09:31→21:04)
[2023-08-19] MEDS: REMEDY ESSENTIAL ZINC PASTE 113 GM TOP SCH ×2 (10:51→22:12)
[2023-08-19] MEDS: BUMETANIDE 1 MG TABLET PO SCH (10:51)
[2023-08-19] MEDS: DOCUSATE SODIUM 100 MG CAPSULE PO SCH ×2 (10:51→17:37)
[2023-08-19 11:17] VITALS: BP 99/62; TEMP 98.2; O2SAT 96
[2023-08-19 15:30] VITALS: BP 106/69; TEMP 98.1; O2SAT 98
[2023-08-19] MEDS: ACETAMINOPHEN 325 MG TABLET PO PRN (20:13)
[2023-08-19] MEDS: ZOLPIDEM 5 MG TABLET PO PRN (21:04)
[2023-08-19] MEDS: SENNOSIDES 1 TABLET PO SCH (21:04)
[2023-08-19 22:35] VITALS: BP 103/63; TEMP 100.9; O2SAT 94
[2023-08-20] MEDS: HYDROCODONE/APAP 5-325MG TABLET PO PRN (02:59)
[2023-08-20 04:58] VITALS: BP 102/57; TEMP 97.5; O2SAT 94
[2023-08-20] MEDS: PANTOPRAZOLE SODIUM 40 MG TABLET.DR PO SCH (06:02)
[2023-08-20] MEDS: ASPIRIN 81 MG TAB.CHEW PO SCH (08:17)
[2023-08-20] MEDS: BUMETANIDE 1 MG TABLET PO SCH (08:17)
[2023-08-20] MEDS: DOCUSATE SODIUM 100 MG CAPSULE PO SCH ×2 (08:17→16:12)
[2023-08-20] MEDS: APIXABAN 5 MG TABLET PO SCH ×2 (08:18→20:17)
[2023-08-20] MEDS: METOPROLOL TARTRATE 25 MG TABLET PO SCH ×2 (08:18→16:12)
[2023-08-20] MEDS: REMEDY ESSENTIAL ZINC PASTE 113 GM TOP SCH ×2 (08:34→20:12)
[2023-08-20 11:39] VITALS: BP 95/62; TEMP 97.8; O2SAT 94
[2023-08-20 14:45] VITALS: BP 98/64; TEMP 98; O2SAT 97
[2023-08-20 15:06] VITALS: BP 100/65; TEMP 97.9; O2SAT 97
[2023-08-20 20:06] VITALS: BP 95/65; TEMP 97.8; O2SAT 97
[2023-08-20] MEDS: SENNOSIDES 1 TABLET PO SCH (20:17)
[2023-08-20] MEDS: ZOLPIDEM 5 MG TABLET PO PRN (21:23)
[2023-08-20] MEDS ORDERED: ZOLPIDEM 5 MG TABLET PO ONE (22:41)
[2023-08-20] MEDS: ACETAMINOPHEN 325 MG TABLET PO PRN (22:57)
[2023-08-21] MEDS: PANTOPRAZOLE SODIUM 40 MG TABLET.DR PO SCH (06:09)
[2023-08-21 06:22] VITALS: BP 93/65; TEMP 98.4; O2SAT 97
[2023-08-21 06:40] VITALS: BP 107/66; TEMP 98.4; O2SAT 97
[2023-08-21] MEDS: ASPIRIN 81 MG TAB.CHEW PO SCH (08:13)
[2023-08-21] MEDS: DOCUSATE SODIUM 100 MG CAPSULE PO SCH ×2 (08:13→16:02)
[2023-08-21] MEDS: BUMETANIDE 1 MG TABLET PO SCH (08:14)
[2023-08-21] MEDS: APIXABAN 5 MG TABLET PO SCH ×2 (08:15→21:19)
[2023-08-21] MEDS: METOPROLOL TARTRATE 25 MG TABLET PO SCH ×2 (08:15→16:02)
[2023-08-21] MEDS: REMEDY ESSENTIAL ZINC PASTE 113 GM TOP SCH ×2 (08:22→21:20)
[2023-08-21 11:52] VITALS: BP 98/68; TEMP 97.7; O2SAT 96
[2023-08-21 16:00] VITALS: BP 104/66; TEMP 97.4; O2SAT 100
[2023-08-21 20:32] VITALS: BP 98/66; TEMP 98; O2SAT 99
[2023-08-21] MEDS: ZOLPIDEM 5 MG TABLET PO PRN (21:18)
[2023-08-21] MEDS: SENNOSIDES 1 TABLET PO SCH (21:18)
[2023-08-22 00:40] VITALS: BP 105/67; TEMP 99.2; O2SAT 98
[2023-08-22] MEDS: HYDROCODONE/APAP 5-325MG TABLET PO PRN (00:41)
[2023-08-22] MEDS: PANTOPRAZOLE SODIUM 40 MG TABLET.DR PO SCH (06:31)
[2023-08-22 06:59] VITALS: BP 113/68; TEMP 97.9; O2SAT 97
[2023-08-22] MEDS: BUMETANIDE 1 MG TABLET PO SCH (09:04)
[2023-08-22] MEDS: ASPIRIN 81 MG TAB.CHEW PO SCH (09:04)
[2023-08-22] MEDS: DOCUSATE SODIUM 100 MG CAPSULE PO SCH (09:04)
[2023-08-22] MEDS: APIXABAN 5 MG TABLET PO SCH (09:05)
[2023-08-22] MEDS: REMEDY ESSENTIAL ZINC PASTE 113 GM TOP SCH (09:06)
[2023-08-22] MEDS: METOPROLOL TARTRATE 25 MG TABLET PO SCH (09:06)
[2023-08-22 11:19] VITALS: BP 100/65; TEMP 98.1; O2SAT 98
== END 2023-08-22 12:45 | disposition home or self-care (01) | DRG 867 ==
LOC: ER 09:26 → TELE3 20:13 → MEDSURG3 08-05 10:44 → MED 08-06 06:37 → MEDSURG3 08-08 18:15
PROVIDERS: ADMIT Nurse Practitioner Acute Care; ATTEND Nurse Practitioner Acute Care
DX: A28.0 Pasteurellosis (principal); I21.A1 Myocardial infarction type 2; I50.33 Acute on chronic diastolic (congestive) heart failure; N17.0 Acute kidney failure with tubular necrosis; J96.01 Acute respiratory failure with hypoxia; I26.99 Other pulmonary embolism without acute cor pulmonale; R65.20 Severe sepsis without septic shock; M62.82 Rhabdomyolysis; E44.0 Moderate protein-calorie malnutrition; E87.1 Hypo-osmolality and hyponatremia; I48.20 Chronic atrial fibrillation, unspecified; I48.92 Unspecified atrial flutter; I13.0 Hypertensive heart and chronic kidney disease with heart failure and stage 1 through stage 4 chronic kidney disease, or unspecified chronic kidney disease; J21.9 Acute bronchiolitis, unspecified; E88.09 Other disorders of plasma-protein metabolism, not elsewhere classified; K76.1 Chronic passive congestion of liver; Z90.49 Acquired absence of other specified parts of digestive tract; N18.9 Chronic kidney disease, unspecified; Z79.01 Long term (current) use of anticoagulants; M89.8X9 Other specified disorders of bone, unspecified site; K43.9 Ventral hernia without obstruction or gangrene; K59.00 Constipation, unspecified; R62.7 Adult failure to thrive; I07.1 Rheumatic tricuspid insufficiency
CPT/HCPCS: 36415; 36600; 70030-TC; 71045; 74181; 76770; 78580; 83605; 83735; 83970; 84100; 84155; 84165; 84300; 84443; 84484; 85025; 86704; 86708; 86803; 87040; 87077; 93005; 93307; A4663; A6213; A9540; C1758; C9113; G0378; J0692; J2543; J3370; J7040; J7050